=== PATIENT | male | born 1965 | race Two or more races ===

== ENCOUNTER 2024-10-30 16:21 | Emergency (ER) | payer MEDICARE, MEDICAID ==
[2024-10-30 16:41] LABS: Basophils # (auto) 0.1 10 ^3/uL (0-0.2); Eosinophils # (auto) 0.1 10 ^3/uL (0-0.8); Eosinophils % (auto) 1.3 % (0.0-7.0); Hematocrit 32.7 % (41.0-53.0); Hemoglobin 10.8 g/dL (13.5-17.5); Lymphocytes # (auto) 1.3 10 ^3/uL (0.4-5.4); Lymphocytes % (auto) 13.4 % (10.0-50.0); Mean Corpuscular Hemoglobin 33.2 pg (28.0-32.0); Mean Corpuscular Hgb Conc. 33.2 g/dL (32.0-36.0); Mean Corpuscular Volume 99.9 fL (80.0-100.0); Monocytes # (auto) 0.8 10 ^3/uL (0-1.3); Monocytes % (auto) 8.1 % (0.0-12.0); Neutrophils # (auto) 7.4 10 ^3/uL (1.6-8.6); Neutrophils % (auto) 76.2 % (37.0-80.0); Nucleated Red Blood Cells % 0.5 %; Platelet Count (auto) 269 10^3/uL (140-450); Red Blood Cells 3.27 10^6/uL (4.5-5.90); Red Cell Distribution Width 15.2 % (11.8-14.3); White Blood Cell 9.7 10^3/uL (4.4-10.8)
[2024-10-30 16:54] LABS: Potassium 3.8 mmol/L (3.5-5.1); Sodium 139 mmol/L (136-145)
[2024-10-30 16:55] LABS: Anion Gap 13 (5-15); Carbon Dioxide 30 mmol/L (20-31)
[2024-10-30] MEDS: cloNIDine HCL 0.1 MG TAB PO ONE (17:05)
[2024-10-30 17:13] LABS: Calcium 8.5 mg/dL (8.7-10.4); Chloride 96 mmol/L (98-107); Glucose 163 mg/dL (74-106)
[2024-10-30 17:34] LABS: BUN/Creatinine Ratio 4.6 (10.0-20.0); Blood Urea Nitrogen 47 mg/dL (9-23)
--- NOTE | 2024-10-30 18:05 | DVH ---
EXAM: XY CHEST PORTABLE TECHNIQUE: Single frontal chest radiograph CLINICAL HISTORY: HIGH BP DURING DIALYSIS COMPARISON: None Findings/Impression: Frontal chest radiograph demonstrates no acute osseous or superficial soft tissue abnormalities. Tunneled right sided HD catheter terminates in the right atrium. The trachea is midline. The cardiac silhouette and mediastinum are within normal limits. Left basilar atelectasis. No pneumothorax, pleural effusions, or consolidations.
[2024-10-30] MEDS ORDERED: CLON0.2T PO (19:01)
--- NOTE | 2024-10-30 19:01 | ED.PDOC ---
History of Present Illness HPI Comments This patient is a pleasant but morbidly obese 59-year-old male who was brought by EMS today from his dialysis center due to elevated blood pressure concerns. Patient has a history of hypertension and states that it is not always well controlled. Patient was not aware of his blood pressure, but states that it was high at the facility. Patient comes to our facility for management of blood pressure. Patient only received a short dialysis session. Advised patient if he would like us to manage his dialysis tomorrow with an admission if needed, but the patient states it was not want to be admitted to the hospital and will manage his dialysis on his own. Patient's vital signs were stable on arrival. Time Seen by MD: 16:26 Reviewed Notes: Nurses Notes, Or Scrub Tech Notes Information Source: Patient, Emergency Med Personnel Mode of Arrival: EMS Severity: Moderate Timing: Hours Duration: Hours Prehospital treatment: 12 Lead EKG Past Medical History PAST MEDICAL HISTORY: ESRD (On dialysis), HTN Surgical History: Denies all surgeries Family History Family History: Reviewed,noncontributory to illness, No family hx of Cancer, No family hx of DM, No family hx of Heart vanessa, No family hx of HTN, No family hx ofKidney vanessa, No family hx of Liver vanessa, No family hx of Lung vanessa, No family hx of Stroke Social History Smoker: Non-Smoker Alcohol: Denies ETOH Use Drugs: Denies Drug Use Lives In: Home Constitutional: denies: chills, diaphoresis, fatigue, fever, malaise, sweats, weakness, others EENTM: denies: blurred vision, double vision, ear bleeding, ear discharge, ear drainage, ear pain, ear ringing, eye pain, eye redness, hearing loss, mouth pain, mouth swelling, nasal discharge, nose bleeding, nose congestion, nose pain, photophobia, tearing, throat pain, throat swelling, voice changes, others Respiratory: denies: cough, hemoptysis, orthopnea, SOB at rest, shortness of breath, SOB with excertion, stridor, wheezing, others Cardiovascular: denies: chest pain, dizzy spells, diaphoresis, Dyspnea on exertion, edema, irregular heart beat, left arm pain, lightheadedness, palpitations, PND, syncope, others Gastrointestinal: denies: abdomen distended, abdominal pain, blood streaked bowels, constipated, diarrhea, dysphagia, difficulty swallowing, hematemesis, melena, nausea, poor appetite, poor fluid intake, rectal bleeding, rectal pain, vomiting, others Genitourinary: denies: burning, dysuria, flank pain, frequency, hematuria, incontinence, penile discharge, penile sore, pain, testicle pain, testicle swelling, urgency, others Neurological: denies: dizziness, fainting, headache, left sided numbness, left sided weakness, numbness, paresthesia, pre-existing deficit, right sided numbness, right sided weakness, seizure, speech problems, tingling, tremors, weakness, others Musculoskeletal: denies: back pain, gout, joint pain, joint swelling, muscle pain, muscle stiffness, neck pain, others Integumetry: denies: bruises, change in color, change in hair/nails, dryness, laceration, lesions, lumps, rash, wounds, others Allergic/Immunocompromised: denies: Difficulty Healing, Frequent Infections, Hives, Itching, others Hematologic/Lymphatic: denies: anemia, blood clots, easy bleeding, easy bruising, swollen glands, others Endocrine: denies: excessive hunger, excessive sweating, excessive thirst, excessive urination, flushing, intolerance to cold, intolerance to heat, un explained weight gain, unexplained weight loss, others Psychiatric: denies: anxiety, bipolar disorder, depression, hopeless, panic disorder, schizophrenia, sleepless, suicidal, others Physical Exam General Appearance: Mild Distress (Patient was in moderate distress due to anxiety rather than a pain concerns.), Obese HEENT: Normal ENT Inspection, Pharynx Normal, TMs Normal Neck: Full Range of Motion, Non-Tender, Normal, Normal Inspection Respiratory: Chest Non-Tender, Lungs Clear, No Accessory Muscle Use, No Respi ratory Distress, Normal Breath Sounds Cardiovascular: No Edema, No JVD, No Murmur, No Gallop, Normal Peripheral Pulses, Regular Rate/Rhythm Breast Exam: Deferred Gastrointestinal: No Organomegaly, Non Tender, No Pulsatile Mass, Normal Bowel Sounds, Soft Genitalia: Deferred Pelvic: Deferred Rectal: Deferred Extremities: No calf tenderness, Normal capillary refill, Normal inspection, Normal range of motion, Non-tender, No pedal edema Neurologic: Alert, humane agent II-XII nml as Tested, No Motor Deficits, Normal Affect, Normal Mood, No Sensory Deficits Cerebellar Function: Normal Reflexes: Normal Skin: Dry, Normal Color, Warm Lymphatic: No Adenopathy Was a procedure done? Was a procedure done?: No Differential Dx Considerations may include: End-stage renal disease on dialysis, hypertension, pulmonary hypertension X-Ray, Labs, Meds, VS Vital Signs Date Time Temp Pulse Resp B/P (MAP) Pulse Ox O2 Delivery O2 Flow Rate FiO2 10/30/24 17:05 127/71 Lab Test 10/30/24 15:36 Range/Units White Blood Count 9.7 4.4-10.8 10^3/uL Red Blood Count 3.27 L 4.5-5.90 10^6/uL Hemoglobin 10.8 L 13.5-17.5 g/dL Hematocrit 32.7 L 41.0-53.0 % Mean Corpuscular Volume 99.9 80.0-100.0 fL Mean Corpuscular Hemoglobin 33.2 H 28.0-32.0 pg Mean Corpuscular Hemoglobin Concent 33.2 32.0-36.0 g/dL Red Cell Distribution Width 15.2 H 11.8-14.3 % Platelet Count 269 140-450 10^3/uL Mean Platelet Volume 8.9 6.9-10.8 fL Neutrophils (%) (Auto) 76.2 37.0-80.0 % Lymphocytes (%) (Auto) 13.4 10.0-50.0 % Monocytes (%) (Auto) 8.1 0.0-12.0 % Eosinophils (%) (Auto) 1.3 0.0-7.0 % Basophils (%) (Auto) 1.0 0.0-2.0 % Neutrophils # (Auto) 7.4 1.6-8.6 10 ^3/uL Lymphocytes # (Auto) 1.3 0.4-5.4 10 ^3/uL Monocytes # (Auto) 0.8 0-1.3 10 ^3/uL Eosinophils # (Auto) 0.1 0-0.8 10 ^3/uL Basophils # (Auto) 0.1 0-0.2 10 ^3/uL Nucleated Red Blood Cells 0.5 % Sodium Level 139 136-145 mmol/L Potassium Level 3.8 3.5-5.1 mmol/L Chloride Level 96 L 98-107 mmol/L Carbon Dioxide Level 30 20-31 mmol/L Anion Gap 13 5-15 Blood Urea Nitrogen 47 H 9-23 mg/dL Creatinine 10.12 *H 0.700-1.30 mg/dL Glomerular Filtration Rate Calc 5 >90 mL/min BUN/Creatinine Ratio 4.6 L 10.0-20.0 Serum Glucose 163 H 74-106 mg/dL Calcium Level 8.5 L 8.7-10.4 mg/dL Troponin I High Sensitivity 19 </=54 ng/L B-Type Natriuretic Peptide 87.50 0-100 pg/mL Lipase 225 H 12-53 U/L X-Ray, Labs, Meds, VS Comment Patient's blood pressure was 127/71 it did not require intervention while at the facility. Advised patient I will send him home with medication to be used in the event of a hypertensive emergent situation. Advised patient that his creatinine as well as his BUN were highly elevated as was his lipase. Advised that could be indicative of an acute pancreatitis event. Patient states he understands and again repeats that he will manage all other concerns at home. Time of 1ST Reevaluation: 18:58 Reevaluation 1ST: Unchanged Consultation: PCP, Other (Dialysis) Patient Education/Counseling: Diagnosis, Treatment Family Education/Counseling: Diagnosis, Treatment Departure 1 Departure Time of Disposition: 18:59 Impression: Primary Impression: End stage renal disease on dialysis Additional Impressions: Elevated lipase Elevated blood pressure reading Disposition: HOME / SELF CARE / HOMELESS Condition: Stable Additional Instructions: Advised patient follow up with dialysis tomorrow for continued dialysis treatm ents. Additionally, advised patient to follow up with his primary care provider for discussions related to his elevated lipase concerns as well. e-Prescriptions Clonidine Hydrochloride (Clonidine Hcl) 0.2 Mg Tab 1 TAB PO BID, #20 TAB 0 Refills Prov: PETEROLGA Linda PAC 10/30/24 Discharged With: Self, Friend Critical Care Note Critical Care Time?: No Stability Stability form required: No Heart Score Heart Score: Heart Score Response (Comments) Value History N/A 0 EKG Repolarization Disturb 1 Age 45-64 1 Risk Factors 1 or 2 risk factors 1 Troponin Normal limit 0 Total 3 OLGA GREEN PAC Oct 30, 2024 19:01
[2024-10-30 20:53] VITALS: BP 141/74; PULSE 92; RESP 18; TEMP 98.3; O2SAT 96
--- NOTE | 2024-11-05 09:21 | ECG ---
[facility] Test Date: 2024-10-30 Test Time: 14:23:45 Pat Name: TAN DEL RIO Department: ED Room: Gender: M English As A Second Language Teacher: MIREYA : 1965 Requested By: OLGA GREEN Order Number: [id number] Reading MD: Jones Mcleod Measurements Intervals [place] Rate: 92 P: 45 [place]: 192 QRS: 72 QRSD: 93 T: 75 QT: 395 QTc: 489 Interpretive Statements Sinus rhythm RSR' in V1 or V2, probably normal variant Borderline T abnormalities, lateral leads Borderline prolonged QT interval Electronically Signed On 11-06-2024 9:40:45 PST by Jones Mcleod Please click the below link to view image of tracing.
== END 2024-10-30 20:57 | disposition home or self-care (01) ==
LOC: ER 16:21 → EDBD 16:21 → ER 20:57
DX: I12.0 Hypertensive chronic kidney disease with stage 5 chronic kidney disease or end stage renal disease (principal); N18.6 End stage renal disease; R74.8 Abnormal levels of other serum enzymes; Z99.2 Dependence on renal dialysis
CPT/HCPCS: 36415; 71045; 80048; 83690; 83880; 84484; 85025

== ENCOUNTER 2025-09-08 18:58 | Inpatient (IN) | payer MEDICARE, MEDICAID ==
[~2025-09-08] VITALS: Ht 177.8 cm; Wt 120.3 kg
[~2025-09-08 18:58] MED LIST: CLON0.2T PO
[2025-09-08 19:40] LABS: Hematocrit 30.2 % (41.0-53.0); Hemoglobin 10.3 g/dL (13.5-17.5); Mean Corpuscular Hemoglobin 31.0 pg (28.0-32.0); Mean Corpuscular Volume 90.6 fL (80.0-100.0); Nucleated Red Blood Cells % 0.1 %
--- NOTE | 2025-09-08 19:45 | DVH ---
INDICATION: cp TECHNIQUE: Frontal view of the chest. COMPARISON: XY CHEST PORTABLE on DOS: 10/30/24 FINDINGS/IMPRESSION: Suspected left basilar opacity. A component of pleural effusion cannot be excluded. The cardiomediastinal silhouette is prominent, likely accentuated by technique. No pneumothorax. No acute osseous abnormality.
[2025-09-08 19:49] LABS: Potassium 3.7 mmol/L (3.5-5.1); Sodium 138 mmol/L (136-145)
[2025-09-08 19:50] LABS: Anion Gap 17 (5-15); Carbon Dioxide 28 mmol/L (20-31)
[2025-09-08 19:55] LABS: BUN/Creatinine Ratio 3.5 (10.0-20.0)
[2025-09-08 19:59] LABS: Blood Urea Nitrogen 29 mg/dL (9-23); Calcium 7.7 mg/dL (8.7-10.4); Chloride 93 mmol/L (98-107); Glucose 208 mg/dL (74-106)
--- NOTE | 2025-09-08 20:35 | ED.PDOC ---
History of Present Illness HPI Comments 59-year-old male with a history of end-stage renal disease on hemodialysis and hypertension presents to the emergency department with shortness of breath ongoing which started approximately 30 minutes prior to completing his dialysis session today. At this time he reports the pain is 0/10 in severity. Pain was on the right side of his chest associated with some lower back pain, shortness of breath and cough. He feels somewhat lightheaded at this time. REVIEW OF SYSTEMS: General: No fever, no chills, or fatigue HEENT: No sore throat, no earache, no congestion, no neck pain. Cardiac: No chest pain. No palpitations. Lungs: No shortness of breath, no cough. GI: No nausea, no vomiting, no diarrhea, no constipation, no abdominal pain : No dysuria, frequency, or urgency. No hematuria. Musculoskeletal: No joint pain , no joint swelling, no extremity edema. Skin: No rash, no itching. Neuro: No headache, no dizziness, no weakness (And as sated in HPI) PHYSICAL EXAM: General: Awake, alert and oriented. No acute distress. Skin: Skin in warm, dry and intact. Appropriate color for ethnicity. HEENT: The head is normocephalic and atraumatic. Conjunctivae are clear without exudates or hemorrhage. Sclera is non-icteric. Eyelids are normal in appearance without swelling or lesions. Oral mucosa is pink and moist Neck: The neck is supple with normal range of motion. No JVD. Cardiac: Heart rate and rhythm are normal. No murmurs, gallops, or rubs are auscultated. Respiratory: No signs of respiratory distress. Lung sounds are clear in all lobes bilaterally without rales, rhonchi, or wheezes. Abdominal: Abdomen is soft, non-tender without distention, guarding or rigidity. Bowel sounds are present and normoactive in all four quadrants. Extremities: No lower extremity edema Neurological: The patient is awake, alert and oriented to person, place, and time with normal speech. Speech is clear. There is no facial asymmetry. Patient is able to stand from wheelchair and ambulate with some difficulty. Unsteady gait. Psychiatric: Appropriate mood and affect. Good judgement and insight. Chief Complaint: Chest Pain Time Seen by MD: 19:34 Allergies: Coded Allergies: NO KNOWN ALLERGIES (Unverified , 09/08/25) Home Meds Active Scripts Clonidine Hydrochloride (Clonidine Hcl) 0.2 Mg Tab, 1 TAB PO BID, #20 TAB 0 R efills Prov:OLGA GREEN PAC 10/30/24 Mode of Arrival: EMS Past Medical History PAST MEDICAL HISTORY: ESRD, HTN Surgical History: Denies all surgeries Family History Family History: Reviewed,noncontributory to illness, No family hx of Cancer, No family hx of DM, No family hx of Heart vanessa, No family hx of HTN, No family hx ofKidney vanessa, No family hx of Liver vanessa, No family hx of Lung vanessa, No family hx of Stroke Social History Smoker: Non-Smoker Alcohol: Denies ETOH Use Drugs: Denies Drug Use Lives In: Home Was a procedure done? Was a procedure done?: No Differential Dx Considerations may include: Differential diagnoses considered include acute ischemic coronary syndrome, aortic dissection, cardiac tamponade, mediastinitis, pulmonary embolus, pneumothorax, tension pneumothorax, esophageal rupture, coronary artery vasospasm, myocarditis, pericarditis, pneumonia, pulmonary edema, esophageal tear, pancreatitis, aortic stenosis, dilated cardiomyopathy, hypertrophic cardiomyopathy, mitral valve prolapse, malignancy, pleuritis, pneumomediastinum, primary pulmonary hypertension, cholecystitis, esophageal spasm, esophagus, gastritis, GERD, peptic ulcer disease, costochondritis, fibromyalgia, rib fracture, herpes zoster, radicular syndromes, thoracic outlet syndrome, somatization. X-Ray, Labs, Meds, VS Vital Signs Date Time Temp Pulse Resp B/P (MAP) Pulse Ox O2 Delivery O2 Flow Rate FiO2 09/08/25 22:41 83 09/08/25 20:43 Room Air* 0 21 09/08/25 20:40 98.4 91 20 119/78 (92) 100 98.4 09/08/25 20:25 89 09/08/25 19:06 98.6 81 14 100/55 94 98.6 09/08/25 18:59 88 Lab Test 09/08/25 22:20 09/08/25 20:32 09/08/25 19:21 Range/Units Troponin I High Sensitivity 14 14 14 </=54 ng/L White Blood Count 10.2 4.4-10.8 10^3/uL Red Blood Count 3.34 L 4.5-5.90 10^6/uL Hemoglobin 10.3 L 13.5-17.5 g/dL Hematocrit 30.2 L 41.0-53.0 % Mean Corpuscular Volume 90.6 80.0-100.0 fL Mean Corpuscular Hemoglobin 31.0 28.0-32.0 pg Mean Corpuscular Hemoglobin Concent 34.2 32.0-36.0 g/dL Red Cell Distribution Width 13.8 11.8-14.3 % Platelet Count 217 140-450 10^3/uL Mean Platelet Volume 8.7 6.9-10.8 fL Neutrophils (%) (Auto) 71.1 37.0-80.0 % Lymphocytes (%) (Auto) 19.1 10.0-50.0 % Monocytes (%) (Auto) 6.9 0.0-12.0 % Eosinophils (%) (Auto) 1.6 0.0-7.0 % Basophils (%) (Auto) 1.3 0.0-2.0 % Neutrophils # (Auto) 7.3 1.6-8.6 10 ^3/uL Lymphocytes # (Auto) 2.0 0.4-5.4 10 ^3/uL Monocytes # (Auto) 0.7 0-1.3 10 ^3/uL Eosinophils # (Auto) 0.2 0-0.8 10 ^3/uL Basophils # (Auto) 0.1 0-0.2 10 ^3/uL Nucleated Red Blood Cells 0.1 % Sodium Level 138 136-145 mmol/L Potassium Level 3.7 3.5-5.1 mmol/L Chloride Level 93 L 98-107 mmol/L Carbon Dioxide Level 28 20-31 mmol/L Anion Gap 17 H 5-15 Blood Urea Nitrogen 29 H 9-23 mg/dL Creatinine 8.27 H 0.700-1.30 mg/dL Glomerular Filtration Rate Calc 7 >90 mL/min BUN/Creatinine Ratio 3.5 L 10.0-20.0 Serum Glucose 208 H 74-106 mg/dL Calcium Level 7.7 L 8.7-10.4 mg/dL PATIENT: TAN DEL RIO ACCT: [id number] UNIT: [id number] : 1965 LOC: ER ROOM / BED: / AGE / SEX: 59 / M ADM STATUS: REG ER SERVICE [id number] ORDERING PHYSICIAN: ANNA ROWE MD PROCEDURE(s): CXRP - CHEST PORTABLE REASON: cp ORDER NUMBER(s): [id number], ACCESSION NUMBER(s): [id number] INDICATION: cp TECHNIQUE: Frontal view of the chest. COMPARISON: XY CHEST PORTABLE on DOS: 10/30/24 FINDINGS/IMPRESSION: Suspected left basilar opacity. A component of pleural effusion cannot be excluded. The cardiomediastinal silhouette is prominent, likely accentuated by technique. No pneumothorax. No acute osseous abnormality. ATED BY: DELMAR PITT MD DICTATED DATE/TIME: 09/08/251942 SIGNED BY: DELMAR PITT MD Time of 1ST Reevaluation: 20:30 Reevaluation 1ST: Unchanged Patient Education/Counseling: Need For Follow Up Family Education/Counseling: No Family Present SEPSIS Sepsis Screen Date sepsis recognized/suspect: Sep 08, 2025 Time Sepsis recognized/suspect: 1900 Recent Procedure: No On Antibiotic Therapy: No Respiratory Rate >20: No Heart Rate >90: No Temp<36 C (96.8 F) or >38.3 C: No SBP <90 or MAP <65 mmHG: No New Acute Mental Status Change: No Is the patient on CPAP, BIPAP,: No Physician Orders Chest Portable (09/08/25 19:05) Electrocardigram (09/08/25 20:05) Electrocardigram (09/08/25 22:05) Maintenance Manager (09/08/25 ) Vital Signs Q1HR (09/08/25 20:13) Vital Signs Date Time Temp Pulse Resp B/P (MAP) Pulse Ox O2 Delivery O2 Flow Rate FiO2 09/08/25 22:41 83 09/08/25 20:43 Room Air* 0 21 09/08/25 20:40 98.4 91 20 119/78 (92) 100 98.4 09/08/25 20:25 89 09/08/25 19:06 98.6 81 14 100/55 94 98.6 09/08/25 18:59 88 Laboratory Tests Test 09/08/25 19:21 White Blood Count 10.2 10^3/uL (4.4-10.8) Departure 1 Departure Time of Disposition: 00:02 Impression: Primary Impression: Chest pain Additional Impressions: End stage renal disease on dialysis Hypertension Disposition: 09 ADMITTED INPATIENT Condition: Stable Comments MDM: 59-year-old male with multiple risk factors presents with chest pain, Incomplete session of dialysis. Patient is stabilized in the ED Patient admitted to hospitalist service for further treatment, evaluation and monitoring. Extensive evaluation was performed in attempt to identify or rule out: (See differential diagnosis section) The following tests were ordered, and results were reviewed by me and discussed with patient: (See diagnostic results section) The following test were independently interpreted by me: EKG I reviewed and agreed with the following test results read by other providers: Chest x-ray I reviewed the following notes from the pt's past medical encounters: N/A Additional information was gathered from interviewing the following independent historians: EMS personnel Discussion of management or test interpretation with external physician/other qualified health care partner: N/A Addressedone or more chronic illnesses with severe exacerbation, progression, or side effects of treatment: End-stage renal disease, hemodialysis, hypertension an acute or chronic illness that poses a threat to life or bodily function: Chest pain Decision regarding hospitalization or escalation of hospital level of care: Risk and benefits of admission for further treatment of patient's condition was considered. Due to patient's current clinical condition, high risk of decline and poor outcome if discharged and need for further inpatient management and monitoring, patient will be admitted to the hospital. ecision regarding hospitalization or escalation of hospital level of care: Risks and benefits of admission for further treatment of patient's condition was considered however due to patient's stable condition patient will be discharged to follow up closely or return to care for worsening of condition or inability to follow up. Critical Care Note Critical Care Time?: No Stability Stability form required: No Heart Score Heart Score: Heart Score Response (Comments) Value History N/A 0 EKG N/A 0 Age N/A 0 Risk Factors N/A 0 Troponin N/A 0 Total 0 ANNA ROWE MD Sep 08, 2025 20:35
--- NOTE | 2025-09-08 21:53 | ECG ---
[facility] Test Date: 2025-09-08 Test Time: 20:25:21 Pat Name: TAN DEL RIO Department: Room: 0220T Gender: M Ecologist Technician: MARICHUY : 1965 Requested By: ANNA ROWE Order Number: [id number] Reading MD: Jones Mcleod Measurements Intervals [place] Rate: 89 P: 0 [place]: 0 QRS: 71 QRSD: 93 T: 64 QT: 403 QTc: 491 Interpretive Statements Normal sinus rhythm premature atrial contractions RSR' in V1 or V2, probably normal variant Borderline prolonged QT interval Electronically Signed On 09-11-2025 15:42:52 PST by Jones Mcleod Please click the below link to view image of tracing.
[2025-09-09] VITALS (17 sets, daily range): BP systolic 123–141; BP diastolic 68–82; PULSE 77–89; RESP 16–19; TEMP 97.5–98.7; O2SAT 92–100
[2025-09-09] MEDS ORDERED: DEXTROSE (50%) 50ML SYRG IV PRN (00:45)
[2025-09-09] MEDS ORDERED: NITROGLYCERIN 0.4 MG SL TAB SL PRN (00:45)
[2025-09-09] MEDS: ALBUTEROL SULF 2.5 MG/0.5ML(0.5%) NEB SOLN NEB PRN (01:39)
--- NOTE | 2025-09-09 04:25 | DVHHP2 ---
History of Present Illness Reason for Visit: Chest pain History of Present Illness 59-year-old male presents for evaluation of chest pain. Patient reports that today while receiving dialysis he developed substernal chest pain. Associates having shortness for breath. No nausea or vomiting. He also had some dizziness. Past Medical History End-stage renal disease, hypertension, diabetes mellitus Past Surgical History AV fistula Family History Noncontributory Smoke: No ALCOHOL: none Drugs: None Lives: with Family Review of Systems Review of Systems Review of systems are currently negative otherwise addressed in HPI. Allergies: Coded Allergies: NO KNOWN ALLERGIES (Unverified , 09/08/25) Medications Current Medications Medications Dose Ordered Sig/Kike Route Start Time Stop Time Status Last Admin Dose Admin Aspirin 81 mg DAILY PO 09/09/25 10:00 Nifedipine 90 mg DAILY PO 09/09/25 10:00 Atorvastatin Calcium 80 mg HS PO 09/09/25 22:00 Amiodarone HCl 200 mg Q12HR PO 09/09/25 10:00 Metoprolol Tartrate 25 mg BID PO 09/09/25 10:00 Albuterol 2.5 mg Q6HPRN PRN NEB 09/09/25 00:45 09/09/25 01:39 2.5 MG Multivit/Ca Carb/ B Cmplx/FA/Prenat 1 tab DAILY PO 09/09/25 10:00 Furosemide 40 mg BIDD PO 09/09/25 06:00 Diagnostic Test (Pha) 1 strip ACHS 09/09/25 07:00 Insulin Human Regular ACHS SC 09/09/25 07:00 Dextrose 50 ml UD PRN IV 09/09/25 00:45 Ondansetron HCl 4 mg Q4HP PRN IV 09/09/25 00:45 Acetaminophen 650 mg Q6HP PRN PO 09/09/25 00:45 Nitroglycerin 0.4 mg Q5MINP PRN SL 09/09/25 00:45 Morphine Sulfate 2 mg Q30M PRN IV 09/09/25 00:45 Exam Vital Signs Vital Signs Date Time Temp Pulse Resp B/P (MAP) Pulse Ox O2 Delivery O2 Flow Rate FiO2 09/09/25 03:09 98.3 93 12 125/81 (96) 96 98.3 09/09/25 01:39 Room Air* 0 21 Exam Gen: 59-year-old male in mild distress Skin: Warm, dry, normal color and texture, no rash. HEENT: Normocephalic atraumatic, mucous membranes moist and pink. Neck: Cervical and supraclavicular nodes normal without enlargement, trachea is midline, thyroid gland is normal without masses. Pulmonary: Clear to auscultation and percussion bilaterally. Cardiac: Regular rate and rhythm. No murmur Abdomen: Soft, nontender, nondistended, bowel sounds present all 4 quadrants, no guarding, no rigidity, no organomegaly. Extremities: No cyanosis, clubbing, no edema Neuro: Cranial nerves II through XII grossly intact, normal affect and speech, no focal motor deficits. Labs/Xrays ORDERING PHYSICIAN: ANNA ROWE MD PROCEDURE(s): CXRP - CHEST PORTABLE REASON: cp ORDER NUMBER(s): [id number], ACCESSION NUMBER(s): [id number] INDICATION: cp TECHNIQUE: Frontal view of the chest. COMPARISON: XY CHEST PORTABLE on DOS: 10/30/24 FINDINGS/IMPRESSION: Suspected left basilar opacity. A component of pleural e ffusion cannot be excluded. The cardiomediastinal silhouette is prominent, likely accentuated by technique. No pneumothorax. No acute osseous abnormality. Labs Test 09/08/25 22:20 09/08/25 19:21 Range/Units Troponin I High Sensitivity 14 </=54 ng/L White Blood Count 10.2 4.4-10.8 10^3/uL Red Blood Count 3.34 L 4.5-5.90 10^6/uL Hemoglobin 10.3 L 13.5-17.5 g/dL Hematocrit 30.2 L 41.0-53.0 % Mean Corpuscular Volume 90.6 80.0-100.0 fL Mean Corpuscular Hemoglobin 31.0 28.0-32.0 pg Mean Corpuscular Hemoglobin Concent 34.2 32.0-36.0 g/dL Red Cell Distribution Width 13.8 11.8-14.3 % Platelet Count 217 140-450 10^3/uL Mean Platelet Volume 8.7 6.9-10.8 fL Neutrophils (%) (Auto) 71.1 37.0-80.0 % Lymphocytes (%) (Auto) 19.1 10.0-50.0 % Monocytes (%) (Auto) 6.9 0.0-12.0 % Eosinophils (%) (Auto) 1.6 0.0-7.0 % Basophils (%) (Auto) 1.3 0.0-2.0 % Neutrophils # (Auto) 7.3 1.6-8.6 10 ^3/uL Lymphocytes # (Auto) 2.0 0.4-5.4 10 ^3/uL Monocytes # (Auto) 0.7 0-1.3 10 ^3/uL Eosinophils # (Auto) 0.2 0-0.8 10 ^3/uL Basophils # (Auto) 0.1 0-0.2 10 ^3/uL Nucleated Red Blood Cells 0.1 % Sodium Level 138 136-145 mmol/L Potassium Level 3.7 3.5-5.1 mmol/L Chloride Level 93 L 98-107 mmol/L Carbon Dioxide Level 28 20-31 mmol/L Anion Gap 17 H 5-15 Blood Urea Nitrogen 29 H 9-23 mg/dL Creatinine 8.27 H 0.700-1.30 mg/dL Glomerular Filtration Rate Calc 7 >90 mL/min BUN/Creatinine Ratio 3.5 L 10.0-20.0 Serum Glucose 208 H 74-106 mg/dL Calcium Level 7.7 L 8.7-10.4 mg/dL SEPSIS Sepsis Screen Date sepsis recognized/suspect: Sep 08, 2025 Time Sepsis recognized/suspect: 1900 Recent Procedure: No On Antibiotic Therapy: No Respiratory Rate >20: No Heart Rate >90: No Temp<36 C (96.8 F) or >38.3 C: No SBP <90 or MAP <65 mmHG: No New Acute Mental Status Change: No Is the patient on CPAP, BIPAP,: No Physician Orders Aspirin Tablet (09/09/25 10:00) Nifedipine Er (Procardia Xl (Time-Releas (09/09/25 10:00) Atorvastatin (Lipitor) (09/09/25 22:00) Amiodarone Tablet (Cordarone Tablet) (09/09/25 10:00) Metoprolol Tartrate Tablet (Lopressor Ta (09/09/25 10:00) Albuterol Medneb (Ventolin Medneb) (09/09/25 00:45) B-Complex W/ C & Folic Tablet (Nephro-Vi (09/09/25 10:00) Consistent Carb(Ccho)Diabetes (09/09/25 Breakfast) Furosemide Tablet (Lasix Tablet) (09/09/25 06:00) Basic Metabolic Panel (09/10/25 04:00) Glucose Blood (Accu-Chek Comfort Curve T (09/09/25 07:00) Insulin R (Human) (Insulin R) (09/09/25 07:00) Dextrose 50% Syringe (09/09/25 00:45) Admit (09/09/25 00:41) Ondansetron Hcl (Zofran) (09/09/25 00:45) Echo 2d Mode Cardiac Dop (09/09/25 00:41) Condition: Fair (09/09/25 00:41) Acetaminophen Tablet (Tylenol Tablet) (09/09/25 00:45) Bedrest With Bathroom Privileg (09/09/25 00:41) Nitroglycerin Sublingual (Ntrostat Subli (09/09/25 00:45) Morphine Sulfate Injection (09/09/25 00:45) Stat Ekg For Chest Pain (09/09/25 00:41) Notify Md Of Changes From Base (09/09/25 00:41) Athletic Instructor For 24 Hours (09/09/25 00:41) Emergency Dysrhythmia Protocol (09/09/25 00:41) Rhythm Strips Once Every Shift (09/09/25 00:41) Oxygen By Nasal Cannula (09/09/25 00:41) Vital Signs Date Time Temp Pulse Resp B/P (MAP) Pulse Ox O2 Delivery O2 Flow Rate FiO2 09/09/25 03:09 98.3 93 12 125/81 (96) 96 98.3 09/09/25 02:09 89 09/09/25 02:04 97.5 83 16 127/82 97 97.5 09/09/25 01:45 83 16 98 09/09/25 01:39 98 Room Air* 0 21 09/09/25 01:39 98 Room Air 0.0 09/09/25 01:39 89 16 98 09/09/25 00:47 97.5 93 14 127/82 (97) 93 97.5 09/08/25 22:41 83 09/08/25 20:43 Room Air* 0 21 09/08/25 20:40 98.4 91 20 119/78 (92) 100 98.4 09/08/25 20:25 89 Laboratory Tests Test 09/08/25 19:21 White Blood Count 10.2 10^3/uL (4.4-10.8) Medications Medications Dose Ordered Sig/Kike Route Start Time Stop Time Status Last Admin Dose Admin Albuterol 2.5 mg Q6HPRN PRN NEB 09/09/25 00:45 09/09/25 01:39 2.5 MG Assessment/Plan Assessment/Plan Assessment Chest pain rule out ACS End-stage renal disease, dialysis dependent Hypertension Diabetes mellitus Plan Admit the patient to telemetry to the hospitalist Cardiology consultation Resume home medications Continue treatment per orders. Plan discussed with: Patient My Orders Orders - FLORIN MCDOWELL Procedure Category Date Status Time Aspirin Tablet PHA 09/09/25 In Process 10:00 Nifedipine Er PHA 09/09/25 In Process (Procardia Xl 10:00 Atorvastatin (Lipitor) PHA 09/09/25 In Process 22:00 Amiodarone Tablet PHA 09/09/25 In Process (Cordarone Tablet) 10:00 Metoprolol Tartrate PHA 09/09/25 In Process Tablet (Lopressor Ta 10:00 Albuterol Medneb PHA 09/09/25 In Process (Ventolin Medneb) 00:45 B-Complex W/ C & PHA 09/09/25 In Process Folic Tablet 10:00 Consistent DIET 09/09/25 Transmitted Carb(Ccho)Diabetes Breakfast Furosemide Tablet PHA 09/09/25 In Process (Lasix Tablet) 06:00 Basic Metabolic Panel LAB 09/10/25 Verified 04:00 Glucose Blood PHA 09/09/25 In Process (Accu-Chek Comfort 07:00 Insulin R (Human) PHA 09/09/25 In Process (Insulin R) 07:00 Dextrose 50% Syringe PHA 09/09/25 In Process 00:45 Admit ADMIT 09/09/25 Transmitted 00:41 Ondansetron Hcl PHA 09/09/25 In Process (Zofran) 00:45 Echo 2d Mode Cardiac US 09/09/25 Logged DOP 00:41 Condition: Fair GREGORY 09/09/25 In Process 00:41 Acetaminophen Tablet PHA 09/09/25 In Process (Tylenol Tablet) 00:45 Bedrest With Bathroom [facility] 09/09/25 In Process Privileg 00:41 Nitroglycerin [facility] 09/09/25 In Process Sublingual (Ntrostat 00:45 Morphine Sulfate [facility] 09/09/25 In Process Injection 00:45 Stat Ekg For Chest [facility] 09/09/25 In Process Pain 00:41 Notify Md Of Changes [facility] 09/09/25 In Process From Base 00:41 Athletic Instructor For [facility] 09/09/25 In Process 24 Hours 00:41 Emergency Dysrhythmia [facility] 09/09/25 In Process Protocol 00:41 Rhythm Strips Once [facility] 09/09/25 In Process Every Shift 00:41 Oxygen By Nasal RT 09/09/25 Transmitted Cannula 00:41 Date of Service: Sep 09, 2025 Billing Provider: FLORIN MCDOWELL Common Visit Codes: [id number] INP/OBS CARE (HIGH) FLORIN MCDOWELL Sep 09, 2025 04:25
[2025-09-09] MEDS: MORPHINE SULFATE INJ 2 MG/ml SYRG IV PRN (04:36)
[2025-09-09] MEDS: MORPHINE SULFATE 4 MG/ML SYR/VIAL ONE ×2 (04:36→08:48)
[2025-09-09] MEDS: ONDANSETRON HCL 4 MG/2 ML VIAL IV PRN (04:37)
[2025-09-09] MEDS: FUROSEMIDE 40 MG TAB PO SCH (06:00)
[2025-09-09] MEDS: ACCU-CHEK COMFORT CURVE STRIP VI SCH (06:34)
[2025-09-09] MEDS: InsuLIN REG 1unit/0.01ml Soln (100units/ml) SC SCH (06:34)
[2025-09-09] MEDS ORDERED: IPRATROPIUM BROM 0.5 MG/2.5ML INH SOL NEB SCH (10:00)
[2025-09-09] MEDS ORDERED: ALBUTEROL SULF 2.5 MG/0.5ML(0.5%) NEB SOLN NEB SCH (10:00)
--- NOTE | 2025-09-09 10:03 | ECG ---
[facility] Test Date: 2025-09-08 Test Time: 22:41:48 Pat Name: TAN DEL RIO Department: Room: 0220T Gender: M Assistant City Attorney: MARICHUY : 1965 Requested By: ANNA ROEW Order Number: [id number] Reading MD: Jones Mcleod Measurements Intervals [place] Rate: 83 P: 61 VA: 215 QRS: 75 QRSD: 95 T: 75 QT: 442 QTc: 520 Interpretive Statements Sinus rhythm Atrial premature complex Prolonged VA interval RSR' in V1 or V2, probably normal variant Prolonged QT interval Electronically Signed On 09-11-2025 15:43:02 PST by Jones Mcleod Please click the below link to view image of tracing.
--- NOTE | 2025-09-09 10:18 | ECG ---
[facility] Test Date: 2025-09-09 Test Time: 02:09:21 Pat Name: TAN DEL RIO Department: Room: 0220T Gender: M [employer] Operator: MARICHUY : 1965 Requested By: ANNA ROWE Order Number: [id number] Reading MD: Jones Mcleod Measurements Intervals [place] Rate: 89 P: 0 NC: 0 QRS: 73 QRSD: 133 T: 62 QT: 419 QTc: 510 Interpretive Statements Normal sinus rhythm Nonspecific intraventricular conduction delay Electronically Signed On 09-11-2025 15:43:42 PST by Jones Mcleod Please click the below link to view image of tracing.
[2025-09-09] MEDS: B-COMPLEX W/ C & FOLIC ACID(NEPHROVITE TAB) PO SCH (11:03)
[2025-09-09] MEDS: AMIODARONE HCL 200 MG TAB PO SCH (11:03)
[2025-09-09] MEDS: ACETAMINOPHEN 325 MG TAB PO PRN (11:16)
[2025-09-09] MEDS: METOPROLOL TARTRATE 25 MG TAB PO SCH (11:53)
[2025-09-09 11:54] LABS: INR 1.04 (0.9-1.15); Partial Thromboplastin Time 31.9 SEC (24.5-34.5); Prothrombin Time 11.0 sec (9.3-11.8)
[2025-09-09 11:55] LABS: Alanine Aminotransferase 22 U/L (7-40); Alkaline Phosphatase 115 U/L (46-116); Anion Gap 17 (5-15); BUN/Creatinine Ratio 3.7 (10.0-20.0); Carbon Dioxide 29 mmol/L (20-31); Magnesium 2.1 mg/dL (1.6-2.6); Potassium 4.4 mmol/L (3.5-5.1); Sodium 140 mmol/L (136-145)
[2025-09-09 11:57] LABS: Bilirubin, Total 0.2 mg/dL (0.2-1.0)
[2025-09-09 12:00] LABS: Blood Urea Nitrogen 38 mg/dL (9-23); Chloride 94 mmol/L (98-107); Glucose 128 mg/dL (74-106)
[2025-09-09 12:01] LABS: Albumin 4.9 g/dL (3.2-4.8); Calcium 7.8 mg/dL (8.7-10.4); Total Protein 8.7 g/dL (5.7-8.2)
[2025-09-09] MEDS: IPRATROPIUM BROM 0.5 MG/2.5ML INH SOL NEB SCH (12:24)
[2025-09-09] MEDS: ALBUTEROL SULF 2.5 MG/0.5ML(0.5%) NEB SOLN NEB SCH (12:24)
--- NOTE | 2025-09-09 13:30 | DVHPN2 ---
Reviewed: Care Plan, H&P, Labs, Medications, Previous Orders, Radiology Changes from previous H/P or p: No Changes Objective Vitals Vital Signs Date Time Temp Pulse Resp B/P (MAP) Pulse Ox O2 Delivery O2 Flow Rate FiO2 09/09/25 12:55 83 142/86 09/09/25 12:30 18 100 09/09/25 12:24 Nasal Cannula* 3 32 09/09/25 03:09 98.3 98.3 Medications Current Medications Medications Dose Ordered Sig/Kike Route Start Time Stop Time Status Last Admin Dose Admin Aspirin 81 mg DAILY PO 09/09/25 10:00 09/09/25 11:04 81 MG Nifedipine 90 mg DAILY PO 09/09/25 10:00 09/09/25 11:04 90 MG Atorvastatin Calcium 80 mg HS PO 09/09/25 22:00 Amiodarone HCl 200 mg Q12HR PO 09/09/25 10:00 09/09/25 11:03 200 MG Metoprolol Tartrate 25 mg BID PO 09/09/25 10:00 09/09/25 11:53 25 MG Multivit/Ca Carb/ B Cmplx/FA/Prenat 1 tab DAILY PO 09/09/25 10:00 09/09/25 11:03 1 TAB Furosemide 40 mg BIDD PO 09/09/25 06:00 Diagnostic Test (Pha) 1 strip ACHS 09/09/25 07:00 09/09/25 11:59 1 STRIP Insulin Human Regular ACHS SC 09/09/25 07:00 09/09/25 06:34 4 UNITS Dextrose 50 ml UD PRN IV 09/09/25 00:45 Ondansetron HCl 4 mg Q4HP PRN IV 09/09/25 00:45 09/09/25 08:50 4 MG Acetaminophen 650 mg Q6HP PRN PO 09/09/25 00:45 09/09/25 11:16 650 MG Nitroglycerin 0.4 mg Q5MINP PRN SL 09/09/25 00:45 Morphine Sulfate 2 mg Q30M PRN IV 09/09/25 00:45 09/09/25 08:49 2 MG Albuterol 2.5 mg Q6HR NEB 09/09/25 12:00 09/09/25 12:24 2.5 MG Ipratropium [place] 0.5 mg Q6HR NEB 09/09/25 12:00 09/09/25 12:24 0.5 MG Laboratory Results Laboratory Tests 09/08/25 19:21 09/09/25 11:15 Chemistry Test 09/08/25 19:21 09/09/25 11:15 Calcium Level 7.7 mg/dL (8.7-10.4) L 7.8 mg/dL (8.7-10.4) L Albumin 4.9 g/dL (3.2-4.8) H Magnesium Level 2.1 mg/dL (1.6-2.6) Total Protein 8.7 g/dL (5.7-8.2) H Coagulation Test 09/09/25 11:15 Prothrombin Time 11.0 sec (9.3-11.8) Prothrombin Time INR 1.04 (0.9-1.15) Activated Partial Thromboplast Time 31.9 SEC (24.5-34.5) Cardiac Markers Test 09/09/25 11:15 B-Type Natriuretic Peptide 88.08 pg/mL (0-100) LFT Test 09/09/25 11:15 Alanine Aminotransferase (ALT) 22 U/L (7-40) Alkaline Phosphatase 115 U/L (46-116) Aspartate Amino Transferase (AST) 16 U/L (13-40) Total Bilirubin 0.2 mg/dL (0.2-1.0) HgA1c, TSH Test 09/09/25 11:15 Hemoglobin A1c 11.0 % A1C (<5.7) H Thyroid Stimulating Hormone (TSH) 2.59 uIU/mL (0.55-4.78) Labs and/or images reviewed: Labs reviewed by me, Image(s) reviewed by me Assessment/Plan Assessment/Plan Chest pain rule out ACS : Treatment per ACS protocol, consult for Dr. Kellie Ye End-stage renal disease, dialysis dependent nephrology consult Hypertension Diabetes mellitus Moderate malnutrition Time spent 50 minutes Patient is full code Advanced care planning time 20 minutes Plan discussed with: Patient Date of Service: Sep 09, 2025 Billing Provider: JANICE MUNOZ MD Common Visit Codes: [id number] INP/OBS CARE(HIGH) Secondary Visit Codes: [id number] CARE PLAN 30 MINUTES JANICE MUNOZ MD Sep 09, 2025 13:30
[2025-09-09] MEDS: HYDROcodone-ACET 10/325MG TAB PO PRN (15:56)
[2025-09-09] MEDS ORDERED: FERR1TAB17 PO (17:19)
[2025-09-09] MEDS ORDERED: PREG50CA PO (17:45)
[2025-09-09] MEDS ORDERED: NIFE90TA75 PO (17:45)
[2025-09-09] MEDS ORDERED: MIDO5TAB4 PO (17:45)
[2025-09-09] MEDS ORDERED: PANT1INJ3 PO (17:45)
[2025-09-09] MEDS ORDERED: METH-1181 PO (17:45)
[2025-09-09] MEDS ORDERED: ATOR-47 PO (17:45)
[2025-09-09] MEDS ORDERED: B-CO-5 OR (17:55)
[2025-09-09] MEDS ORDERED: METO10TA3 PO (17:55)
[2025-09-09] MEDS ORDERED: AMLO1TAB22 PO (17:59)
[2025-09-09] MEDS ORDERED: METO-158 PO (18:00)
[2025-09-09] MEDS ORDERED: INSLANTI SC (18:02)
[2025-09-09] MEDS ORDERED: INSU100I4 SC (18:02)
--- NOTE | 2025-09-09 21:04 | DVHINCON2 ---
Date of service: Sep 09, 2025 Referring Physician Jose Elias Reason for Consultation Chest pain History of Present Illness This is a 59-year-old male with a past medical history of end-stage renal disease on hemodialysis and hypertension presents to the emergency department with a complaint of shortness of breath ongoing which started approximately 30 minutes prior to completing his dialysis session on date of admission. Pain was on the right side of his chest associated with some lower back pain, shortness of breath and cough. He feels somewhat lightheaded at this time. EKG showed A Flutter at 89.Chest x-ray shows suspected left basilar opacity. Troponin is negative x3. Patient was admitted to the hospital. I am asked to consult on this patient. Family History: Diabetes mellitus FATHER FH: breast cancer MOTHER Hypertension MOTHER Allergies: Coded Allergies: NO KNOWN ALLERGIES (Unverified , 09/08/25) Home Meds Active Scripts Clonidine Hydrochloride (Clonidine Hcl) 0.2 Mg Tab, 1 TAB PO BID, #20 TAB 0 Refills Prov:OLGA GREEN PAC 10/30/24 Reported Medications Insulin Lispro (Humalog Kwikpen) 100 Unit/Ml Inj, 100 UNIT SC, INJ 09/09/25 Insulin Glargine (Lantus) 100 Unit/Ml Inj, 10 UNIT SC DAILY, INJ 09/09/25 Metoprolol Tartrate (Metoprolol Tartrate) 50 Mg Tab, 50 MG PO BID for 30 Days, MG 09/09/25 Amlodipine Besylate (Amlodipine Besylate) 5 Mg Tab, 20 MG PO DAILY for 30 Days, MG 09/09/25 Metoclopramide Hcl (Metoclopramide Hcl) 10 Mg Tab, 10 MG PO Q6HPRN PRN for nausea and vomiting for 30 Days, MG 09/09/25 B-Complex W/ C & Folic Acid (Dana-Sonny) Tab, 1 MG OR DAILY, TAB 09/09/25 Pantoprazole Sodium (PANTOPRAZOLE SODIUM) 40 Mg Inj, 40 MG PO DAILY, INJ 09/09/25 Nifedipine (Nifedipine Er) 90 Mg Tab, 1 TAB PO DAILY@BREAKFAST, #30 TAB 5 Refills 09/09/25 Atorvastatin Calcium (ATORVASTATIN CALCIUM) 80 Mg Tab, 1 TAB PO DAILY, #30 TAB 5 Refills 09/09/25 Midodrine Hcl (Midodrine Hcl) 5 Mg Tab, 5 MG PO BID, TAB 09/09/25 Pregabalin (Lyrica) 50 Mg Cap, 1 CAP PO BID, #90 CAP 09/09/25 Methocarbamol (Methocarbamol) 500 Mg Tab, 500 MG PO BID, TAB 09/09/25 Ferric Citrate (Auryxia) 210 Mg Tab, 210 MG PO BID, TAB 09/09/25 Current Medications Current Medications Medications (Trade) Dose Ordered Sig/Kike Route PRN Reason Start Time Stop Time Status Last Admin Aspirin 81 mg DAILY PO 09/09/25 10:00 09/09/25 11:04 Nifedipine (Procardia Xl (Time-Release)) 90 mg DAILY PO 09/09/25 10:00 09/09/25 11:04 Atorvastatin Calcium (Lipitor) 80 mg HS PO 09/09/25 22:00 Amiodarone HCl (Cordarone Tablet) 200 mg Q12HR PO 09/09/25 10:00 09/09/25 11:03 Metoprolol Tartrate (Lopressor Tablet) 25 mg BID PO 09/09/25 10:00 09/09/25 11:53 Albuterol (Ventolin Medneb) 2.5 mg Q6HPRN PRN NEB SHORTNESS OF BREATH 09/09/25 00:45 09/09/25 10:01 DC 09/09/25 01:39 Multivit/Ca Carb/ B Cmplx/FA/Prenat (Nephro-Sonny Tablet) 1 tab DAILY PO 09/09/25 10:00 09/09/25 11:03 Furosemide (Lasix Tablet) 40 mg BIDD PO 09/09/25 06:00 Diagnostic Test (Pha) (Accu-Chek Comfort Curve T) 1 strip ACHS 09/09/25 07:00 09/09/25 11:59 Insulin Human Regular (InsuLIN R) ACHS SC 09/09/25 07:00 09/09/25 06:34 Dextrose 50 ml UD PRN IV Blood Sugar LESS THAN 60 09/09/25 00:45 Ondansetron HCl (Zofran) 4 mg Q4HP PRN IV NAUSEA / VOMITING 09/09/25 00:45 09/09/25 08:50 Acetaminophen (Tylenol Tablet) 650 mg Q6HP PRN PO PAIN SCALE 1-3 OR TEMP>100.4 09/09/25 00:45 09/09/25 11:16 Nitroglycerin (Ntrostat Sublingual) 0.4 mg Q5MINP PRN SL FOR CHEST PAIN 09/09/25 00:45 Morphine Sulfate 2 mg Q30M PRN IV FOR CHEST PAIN 09/09/25 00:45 09/09/25 08:49 Albuterol (Ventolin Medneb) 2.5 mg Q6HR [facility] 09/09/25 10:00 09/09/25 10:08 DC Ipratropium [place] (Atrovent Medneb) 0.5 mg Q6HR [facility] 09/09/25 10:00 09/09/25 10:08 DC Albuterol (Ventolin Medneb) 2.5 mg Q6HR [facility] 09/09/25 12:00 09/09/25 12:24 Ipratropium [place] (Atrovent Medneb) 0.5 mg Q6HR [facility] 09/09/25 12:00 09/09/25 12:24 Acetaminophen/ Hydrocodone Bitart ([place] 10/325MG Tab) 1 tab Q6HP PRN PO MODERATE PAIN (4-6 PAIN SCALE) 09/09/25 15:45 09/09/25 15:56 Review of Systems General: No fever, no chills, or fatigue HEENT: No sore throat, no earache, no congestion, no neck pain. Cardiac: No chest pain. No palpitations. Lungs: No shortness of breath, no cough. GI: No nausea, no vomiting, no diarrhea, no constipation, no abdominal pain : No dysuria, frequency, or urgency. No hematuria. Musculoskeletal: No joint pain , no joint swelling, no extremity edema. Skin: No rash, no itching. Neuro: No headache, no dizziness, no weakness (And as sated in HPI) Vital Signs Vital Signs Date Time Temp Pulse Resp B/P (MAP) Pulse Ox O2 Delivery O2 Flow Rate FiO2 09/09/25 17:00 97.7 80 19 127/69 (88) 97 97.7 09/09/25 14:30 Nasal Cannula* 3 32 Physical Exam GENERAL: Alert and oriented x 3. No acute distress. EYES: PERRL, EOMI. Anicteric. HENT: Moist mucous membranes. LUNGS: Clear to auscultation bilaterally. CARDIOVASCULAR: Regular rate and rhythm. ABDOMEN: Soft, nontender and nondistended. EXTREMITIES: No edema. NEUROLOGIC: No focal neurological deficits. SKIN: Warm, dry. Labs/Diagnostic Data Labs Test 09/09/25 16:44 09/09/25 11:15 09/08/25 22:20 09/08/25 19:21 Range/Units POC Glucose 129 H 70-106 mg/dl Prothrombin Time 11.0 9.3-11.8 sec Prothrombin Time INR 1.04 0.9-1.15 Activated Partial Thromboplast Time 31.9 24.5-34.5 SEC Sodium Level 140 136-145 mmol/L Potassium Level 4.4 3.5-5.1 mmol/L Chloride Level 94 L 98-107 mmol/L Carbon Dioxide Level 29 20-31 mmol/L Anion Gap 17 H 5-15 Blood Urea Nitrogen 38 H 9-23 mg/dL Creatinine 10.36 #*H 0.700-1.30 mg/dL Glomerular Filtration Rate Calc 5 >90 mL/min BUN/Creatinine Ratio 3.7 L 10.0-20.0 Serum Glucose 128 H 74-106 mg/dL Hemoglobin A1c 11.0 H <5.7 % A1C Lactic Acid Level 1.4 0.4-2.0 mmol/L Calcium Level 7.8 L 8.7-10.4 mg/dL Magnesium Level 2.1 1.6-2.6 mg/dL Total Bilirubin 0.2 0.2-1.0 mg/dL Aspartate Amino Transferase (AST) 16 13-40 U/L Alanine Aminotransferase (ALT) 22 7-40 U/L Alkaline Phosphatase 115 46-116 U/L C-Reactive Protein High Sensitivity 2.11 H <1.0 mg/dL B-Type Natriuretic Peptide 88.08 0-100 pg/mL Total Protein 8.7 H 5.7-8.2 g/dL Albumin 4.9 H 3.2-4.8 g/dL Thyroid Stimulating Hormone (TSH) 2.59 0.55-4.78 uIU/mL Troponin I High Sensitivity 14 </=54 ng/L White Blood Count 10.2 4.4-10.8 10^3/uL Red Blood Count 3.34 L 4.5-5.90 10^6/uL Hemoglobin 10.3 L 13.5-17.5 g/dL Hematocrit 30.2 L 41.0-53.0 % Mean Corpuscular Volume 90.6 80.0-100.0 fL Mean Corpuscular Hemoglobin 31.0 28.0-32.0 pg Mean Corpuscular Hemoglobin Concent 34.2 32.0-36.0 g/dL Red Cell Distribution Width 13.8 11.8-14.3 % Platelet Count 217 140-450 10^3/uL Mean Platelet Volume 8.7 6.9-10.8 fL Neutrophils (%) (Auto) 71.1 37.0-80.0 % Lymphocytes (%) (Auto) 19.1 10.0-50.0 % Monocytes (%) (Auto) 6.9 0.0-12.0 % Eosinophils (%) (Auto) 1.6 0.0-7.0 % Basophils (%) (Auto) 1.3 0.0-2.0 % Neutrophils # (Auto) 7.3 1.6-8.6 10 ^3/uL Lymphocytes # (Auto) 2.0 0.4-5.4 10 ^3/uL Monocytes # (Auto) 0.7 0-1.3 10 ^3/uL Eosinophils # (Auto) 0.2 0-0.8 10 ^3/uL Basophils # (Auto) 0.1 0-0.2 10 ^3/uL Nucleated Red Blood Cells 0.1 % Assessment Chest pain. End-stage renal disease. Hypertension. Diabetes mellitus. Moderate malnutrition. Plan/Recommendation I agree with your ongoing assessment and care of plan. Echocardiogram. Morphine and [place] for pain management. Amiodarone. Aspirin, Lipitor, Metoprolol. Nifedipine. Nitro SL. Additional plan as per the hospital course. A total of 45 minutes was spent reviewing the patient record, examining the patient, making a diagnostic and therapeutic plan, discussing this plan with medical personnel, following up on diagnostic studies and following the patient for clinical stability excluding any and all procedures. At least 50% of this time was spent in direct, [id number] contact. Plan discussed with: Patient DEZ TORREZ MD Sep 09, 2025 18:18
--- NOTE | 2025-09-09 22:05 | DVH ---
CLINICAL HISTORY: syncope TECHNIQUE: Helical scanning was performed of the head from the skull base to the vertex. Multiplanar reconstructions were performed. This exam was performed according to our departmental dose optimization program. Up-to-date CT equipment and radiation dose reduction techniques are utilized as appropriate. CTDI 68 DLP 1336 COMPARISON: None FINDINGS: There is no evidence for acute intracranial hemorrhage, acute ischemic changes, mass, mass effect, or extra-axial fluid collection. There is no hydrocephalus or midline shift. There is no effacement of the cerebral sulci and basal subarachnoid cisterns. The clark-white matter differentiation is well maintained. Scattered white matter hypoattenuation is most compatible with a mild burden of nonspecific chronic small vessel ischemic change. 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 There is mild left lateral scalp soft tissue swelling / hematoma formation. No underlying skull fracture seen. The imaged paranasal sinuses are clear. IMPRESSION: NO ACUTE INTRACRANIAL ABNORMALITY SEEN.
[2025-09-09] MEDS: ATORVASTATIN 20 MG TAB PO SCH (23:08)
[2025-09-10] VITALS (10 sets, daily range): BP systolic 97–124; BP diastolic 60–73; PULSE 79–115; RESP 17–18; TEMP 36.3; O2SAT 91–100
[2025-09-10 06:44] LABS: Anion Gap 21 (5-15); Carbon Dioxide 26 mmol/L (20-31); Potassium 4.5 mmol/L (3.5-5.1); Sodium 141 mmol/L (136-145)
[2025-09-10 06:50] LABS: BUN/Creatinine Ratio 4.0 (10.0-20.0)
[2025-09-10 07:00] LABS: Blood Urea Nitrogen 45 mg/dL (9-23); Calcium 7.6 mg/dL (8.7-10.4); Chloride 94 mmol/L (98-107); Glucose 124 mg/dL (74-106)
[2025-09-10] MEDS ORDERED: VADA150T PO (07:34)
[2025-09-10] MEDS ORDERED: LIDOCAINE 1% HCL (LOCAL ANESTH.) INJ 20ML MDV ID ONE (08:00)
[2025-09-10] MEDS ORDERED: HEPARIN 1,000 UNITS/ml 1ML VIAL IV ONE (08:00)
--- NOTE | 2025-09-10 09:45 | DVHPN2 ---
Reviewed: Care Plan, H&P, Labs, Medications, Previous Orders, Radiology Changes from previous H/P or p: No Changes Objective Vitals Vital Signs Date Time Temp Pulse Resp B/P (MAP) Pulse Ox O2 Delivery O2 Flow Rate FiO2 09/10/25 08:37 97.4 79 18 97/71 (80) 96 97.4 09/10/25 08:08 Nasal Cannula* 3 32 Intake/Output Intake and Output 09/10/25 07:00 Intake Total 220 ml Output Total 0 ml Balance 220 ml Intake Oral 220 ml Output Urine Total 0 ml Medications Current Medications Medications Dose Ordered Sig/Kike Route Start Time Stop Time Status Last Admin Dose Admin Aspirin 81 mg DAILY PO 09/09/25 10:00 09/09/25 11:04 81 MG Nifedipine 90 mg DAILY PO 09/09/25 10:00 09/09/25 11:04 90 MG Atorvastatin Calcium 80 mg HS PO 09/09/25 22:00 09/09/25 23:08 80 MG Amiodarone HCl 200 mg Q12HR PO 09/09/25 10:00 09/09/25 23:09 200 MG Metoprolol Tartrate 25 mg BID PO 09/09/25 10:00 09/09/25 23:08 25 MG Multivit/Ca Carb/ B Cmplx/FA/Prenat 1 tab DAILY PO 09/09/25 10:00 09/09/25 11:03 1 TAB Furosemide 40 mg BIDD PO 09/09/25 06:00 09/10/25 06:27 40 MG Diagnostic Test (Pha) 1 strip ACHS 09/09/25 07:00 09/10/25 06:25 1 STRIP Insulin Human Regular ACHS SC 09/09/25 07:00 09/10/25 06:39 2 UNITS Dextrose 50 ml UD PRN IV 09/09/25 00:45 Ondansetron HCl 4 mg Q4HP PRN IV 09/09/25 00:45 09/09/25 08:50 4 MG Acetaminophen 650 mg Q6HP PRN PO 09/09/25 00:45 09/09/25 20:38 650 MG Nitroglycerin 0.4 mg Q5MINP PRN SL 09/09/25 00:45 Morphine Sulfate 2 mg Q30M PRN IV 09/09/25 00:45 09/09/25 08:49 2 MG Albuterol 2.5 mg Q6HR NEB 09/09/25 12:00 09/10/25 08:03 2.5 MG Ipratropium [place] 0.5 mg Q6HR NEB 09/09/25 12:00 09/10/25 08:03 0.5 MG Acetaminophen/ Hydrocodone Bitart 1 tab Q6HP PRN PO 09/09/25 15:45 09/09/25 15:56 1 TAB Laboratory Results Laboratory Tests 09/08/25 19:21 09/10/25 05:09 Chemistry Test 09/09/25 11:15 09/10/25 05:09 Albumin 4.9 g/dL (3.2-4.8) H Calcium Level 7.8 mg/dL (8.7-10.4) L 7.6 mg/dL (8.7-10.4) L Magnesium Level 2.1 mg/dL (1.6-2.6) Total Protein 8.7 g/dL (5.7-8.2) H Coagulation Test 09/09/25 11:15 Prothrombin Time 11.0 sec (9.3-11.8) Prothrombin Time INR 1.04 (0.9-1.15) Activated Partial Thromboplast Time 31.9 SEC (24.5-34.5) Cardiac Markers Test 09/09/25 11:15 B-Type Natriuretic Peptide 88.08 pg/mL (0-100) LFT Test 09/09/25 11:15 Alanine Aminotransferase (ALT) 22 U/L (7-40) Alkaline Phosphatase 115 U/L (46-116) Aspartate Amino Transferase (AST) 16 U/L (13-40) Total Bilirubin 0.2 mg/dL (0.2-1.0) HgA1c, TSH Test 09/09/25 11:15 Hemoglobin A1c 11.0 % A1C (<5.7) H Thyroid Stimulating Hormone (TSH) 2.59 uIU/mL (0.55-4.78) Labs and/or images reviewed: Labs reviewed by me, Image(s) reviewed by me Assessment/Plan Assessment/Plan Chest pain coronary artery disease ruled out, consult for Dr. Kellie Ye appreciated End-stage renal disease, dialysis dependent nephrology consult by Dr. Frandy Ye appreciated, patient getting hemodialysis today, Dr. Frandy Ye spoke to me and advised the patient can be discharged today. He also told that the patient is noncompliant and keep going to different hospitals in the area Hypertension Diabetes mellitus Moderate malnutrition Time spent 50 minutes Patient is full code Advanced care planning time 20 minutes Plan discussed with: Patient My Orders Orders - JANICE MUNOZ MD Procedure Category Date Status Time * Cardiology Consult CONS 09/09/25 Transmitted 13:28 Hydrocodone-Acet PHA 09/09/25 In Process 10/325mg Tab ([place] 15:45 Date of Service: Sep 10, 2025 Billing Provider: JANICE MUNOZ MD Common Visit Codes: [id number] INP/OBS CARE(HIGH) JANICE MUNOZ MD Sep 10, 2025 09:45
--- NOTE | 2025-09-10 09:50 | DVHDS2 ---
Discharge Summary Date of Admission Sep 09, 2025 at 00:41 Date of Discharge: Sep 10, 2025 Admitting Diagnosis Shortness of breath and chest pain Wounds: None Labs/Diagnostic Data: Laboratory Results Test 09/10/25 06:25 09/10/25 05:09 09/09/25 11:15 09/08/25 22:20 POC Glucose 146 mg/dl (70-106) Sodium Level 141 mmol/L (136-145) Potassium Level 4.5 mmol/L (3.5-5.1) Chloride Level 94 mmol/L (98-107) Carbon Dioxide Level 26 mmol/L (20-31) Anion Gap 21 (5-15) Blood Urea Nitrogen 45 mg/dL (9-23) Creatinine 11.23 mg/dL (0.700-1.30) Glomerular Filtration Rate Calc 5 mL/min (>90) BUN/Creatinine Ratio 4.0 (10.0-20.0) Serum Glucose 124 mg/dL (74-106) Calcium Level 7.6 mg/dL (8.7-10.4) Prothrombin Time 11.0 sec (9.3-11.8) Prothrombin Time INR 1.04 (0.9-1.15) Activated Partial Thromboplast Time 31.9 SEC (24.5-34.5) Hemoglobin A1c 11.0 % A1C (<5.7) Lactic Acid Level 1.4 mmol/L (0.4-2.0) Magnesium Level 2.1 mg/dL (1.6-2.6) Total Bilirubin 0.2 mg/dL (0.2-1.0) Aspartate Amino Transferase (AST) 16 U/L (13-40) Alanine Aminotransferase (ALT) 22 U/L (7-40) Alkaline Phosphatase 115 U/L (46-116) C-Reactive Protein High Sensitivity 2.11 mg/dL (<1.0) B-Type Natriuretic Peptide 88.08 pg/mL (0-100) Total Protein 8.7 g/dL (5.7-8.2) Albumin 4.9 g/dL (3.2-4.8) Thyroid Stimulating Hormone (TSH) 2.59 uIU/mL (0.55-4.78) Troponin I High Sensitivity 14 ng/L (</=54) Test 09/08/25 19:21 White Blood Count 10.2 10^3/uL (4.4-10.8) Red Blood Count 3.34 10^6/uL (4.5-5.90) Hemoglobin 10.3 g/dL (13.5-17.5) Hematocrit 30.2 % (41.0-53.0) Mean Corpuscular Volume 90.6 fL (80.0-100.0) Mean Corpuscular Hemoglobin 31.0 pg (28.0-32.0) Mean Corpuscular Hemoglobin Concent 34.2 g/dL (32.0-36.0) Red Cell Distribution Width 13.8 % (11.8-14.3) Platelet Count 217 10^3/uL (140-450) Mean Platelet Volume 8.7 fL (6.9-10.8) Neutrophils (%) (Auto) 71.1 % (37.0-80.0) Lymphocytes (%) (Auto) 19.1 % (10.0-50.0) Monocytes (%) (Auto) 6.9 % (0.0-12.0) Eosinophils (%) (Auto) 1.6 % (0.0-7.0) Basophils (%) (Auto) 1.3 % (0.0-2.0) Neutrophils # (Auto) 7.3 10 ^3/uL (1.6-8.6) Lymphocytes # (Auto) 2.0 10 ^3/uL (0.4-5.4) Monocytes # (Auto) 0.7 10 ^3/uL (0-1.3) Eosinophils # (Auto) 0.2 10 ^3/uL (0-0.8) Basophils # (Auto) 0.1 10 ^3/uL (0-0.2) Nucleated Red Blood Cells 0.1 % Other Laboratory Tests 09/10/25 05:09 09/08/25 19:21 Brief Hx & Hospital Course: 59-year-old male with a history of hypertension diabetes ESRD on hemodialysis noncompliance frequent visits to different hospitals in the local area came in complaining of shortness of breaths and chest pain troponin negative x3. Seen by Cardiology Dr. Ye advised to continue the home medications patient received hemodialysis by Nephrology Dr. Frandy Ye. Dr. Frandy Ye spoke to me and advised the patient can be discharged after hemodialysis today. The patient feels better and wants to go home. Discharged home he will continue all his home medications and follow up with the Dr. Kellie Ye and Dr. Frandy Ye for hemodialysis. Consults/Reason for consult Cardiology Dr. Kellie Ye Nephrology Dr. Frandy Ye Operations or Procedures Hemodialysis Condition at Discharge: Fair Final Diagnosis/Problems List Chest pain coronary artery disease ruled out, consult for Dr. Kellie Ye appreciated End-stage renal disease, dialysis dependent nephrology consult by Dr. Frandy Ye appreciated, patient getting hemodialysis today, Dr. Frandy Ye spoke to me and advised the patient can be discharged today. He also told that the patient is noncompliant and keep going to different hospitals in the area Hypertension Diabetes mellitus Moderate malnutrition Discharge Disposition: Home Discharge Instruct/Medications Diet: Renal Activity: No Restrictions, As Tolerated Follow Up/Referral: Resume all previous home medications Follow up with the primary Dr in one week Follow up with the Nephrology Dr. Frandy Ye for regular dialysis Follow up with the Cardiology Dr. Kellie Ye Scheduled Amlodipine Besylate (Amlodipine Besylate), 20 MG PO DAILY, (Reported) Atorvastatin Calcium (Atorvastatin Calcium), 1 TAB PO DAILY, (Reported) B-Complex W/ C & Folic Acid (Dana-Sonny), 1 MG OR DAILY, (Reported) Clonidine Hydrochloride (Clonidine Hcl), 1 TAB PO BID Ferric Citrate (Auryxia), 210 MG PO BID, (Reported) Insulin Glargine (Lantus), 10 UNIT SC DAILY, (Reported) Methocarbamol (Methocarbamol), 500 MG PO BID, (Reported) Metoprolol Tartrate (Metoprolol Tartrate), 50 MG PO BID, (Reported) Midodrine Hcl (Midodrine Hcl), 5 MG PO BID, (Reported) Nifedipine (Nifedipine Er), 1 TAB PO DAILY@BREAKFAST, (Reported) Pantoprazole Sodium (Pantoprazole Sodium), 40 MG PO DAILY, (Reported) Pregabalin (Lyrica), 1 CAP PO BID, (Reported) Vadadustat (Vafseo), 150 MG PO DAILY, (Reported) Scheduled PRN Metoclopramide Hcl (Metoclopramide Hcl), 10 MG PO Q6HPRN PRN for nausea and vomiting, (Reported) Miscellaneous Medications Insulin Lispro (Humalog Kwikpen), 100 UNIT SC, (Reported) 39 (Time taken for discharge summary 39 minutes) Discharge Statement: "Patient was advised to return to the ER or call 911 if any headaches, dizziness, shortness of breath, chest pain, abdominal pain, bleeding, fevers, or worsening of medical condition. Patient was counseled about treatment plan, medications, possible side effects, patientverbalized understanding. All questions were answered to the best of my ability. This discharge took greater then 30 minutes in planning, reviewing documentation, counseling the patient, and discussing with other team members." ASSESSMENT ASSESSMENT Assessment Chest pain coronary artery disease ruled out, consult for Dr. Kellie Ye appreciated End-stage renal disease, dialysis dependent nephrology consult by Dr. Frandy Ye appreciated, patient getting hemodialysis today, Dr. Frandy Ye spoke to me and advised the patient can be discharged today. He also told that the patient is noncompliant and keep going to different hospitals in the area Hypertension Diabetes mellitus Moderate malnutrition Date of Service: Sep 10, 2025 Billing Provider: JANICE MUNOZ MD Common Visit Codes: [id number] DISCH DAY >30min JANICE MUNOZ MD Sep 10, 2025 09:50
--- NOTE | 2025-09-10 19:02 | DVHPN2 ---
Progress Note - Dictate Date Seen: Sep 10, 2025 Medical Necessity Reason Pt with a Central, PICC or Fol: No Subjective Patient was seen and evaluated in follow up. Patient is on 2 LPM NC. BUN 45, GEOLOGICAL AIDE 11.23. Echocardiogram is pending. Telemetry reviewed. vital signs Vital Sign Date Time Temp Pulse Resp B/P (MAP) Pulse Ox O2 Delivery O2 Flow Rate FiO2 09/10/25 14:22 86 140/74 09/10/25 13:00 97.6 17 95 97.6 09/10/25 10:00 Nasal Cannula* 2 28 Total Intake and Output 09/09/25 09/09/25 09/10/25 15:00 23:00 07:00 Intake Total 220 ml Output Total 0 ml Balance 0 ml 220 ml objective GENERAL: Alert and oriented x 3. No acute distress. EYES: PERRL, EOMI. Anicteric. HENT: Moist mucous membranes. LUNGS: Clear to auscultation bilaterally. CARDIOVASCULAR: Regular rate and rhythm. ABDOMEN: Soft, nontender and nondistended. EXTREMITIES: No edema. NEUROLOGIC: No focal neurological deficits. SKIN: Warm, dry. laboratory and microbiology Laboratory Tests 09/10/25 05:09 09/08/25 19:21 Test 09/10/25 05:09 Range/Units Serum Glucose 124 H 74-106 mg/dL Problem List Chest pain. End-stage renal disease. Hypertension. Diabetes mellitus. Moderate malnutrition. Assessment/Plan Continued all current supportive medical care. Echocardiogram. Morphine and [place] for pain management. Amiodarone. Aspirin, Lipitor, Metoprolol. Nifedipine. Nitro SL. Additional plan as per the hospital course. Plan discussed with: Patient DEZ TORREZ MD Sep 10, 2025 19:02
--- NOTE | 2025-09-10 20:49 | DVHPN2 ---
Progress Note - Dictate Date Seen: Sep 10, 2025 Has the PT tested + for MRSA If YES, has PT been informed?: No Medical Necessity Reason Pt with a Central, PICC or Fol: No Subjective Patient was seen and evaluated in follow up earlier today. No acute events overnight. Patient reports feeling better and wants to go home. Dialysis scheduled. vital signs Vital Sign Date Time Temp Pulse Resp B/P (MAP) Pulse Ox O2 Delivery O2 Flow Rate FiO2 09/10/25 14:22 86 140/74 09/10/25 13:00 97.6 17 95 97.6 09/10/25 10:00 Nasal Cannula* 2 28 Total Intake and Output 09/09/25 09/09/25 09/10/25 15:00 23:00 07:00 Intake Total 220 ml Output Total 0 ml Balance 0 ml 220 ml objective Vitals and nursing notes reviewed. Gen: In no acute distress. HEENT: Normocephalic atraumatic, mucous membranes moist and pink. Neck: Cervical and supraclavicular nodes normal without enlargement, trachea is midline, thyroid gland is normal without masses. Pulmonary: Clear to auscultation and percussion bilaterally. Cardiac: Regular rate and rhythm. No murmur Abdomen: Soft, nontender, nondistended, bowel sounds present all 4 quadrants, no guarding, no rigidity, no organomegaly. Extremities: No cyanosis, clubbing, no edema Neuro: Cranial nerves II through XII grossly intact, normal affect and speech, no focal motor deficits Skin: Warm, dry, normal color and texture, no rash. laboratory and microbiology Laboratory Tests 09/10/25 05:09 09/08/25 19:21 Test 09/10/25 05:09 Range/Units Serum Glucose 124 H 74-106 mg/dL Problem List Chest pain rule out ACS End-stage renal disease, dialysis dependent Hypertension Diabetes mellitus Assessment/Plan Agree with current supportive medical care. Cardiology consulted. HD- 09/10. Resume outpatient dialysis with [facility]. Cleared for discharge from Nephrology standpoint. Plan discussed with: Patient, Other (RN) ESTHER TORREZ DO Sep 10, 2025 20:49
--- NOTE | 2025-09-10 20:49 | DVHINCON2 ---
Date of service: Sep 09, [address] Wilson Reason for Consultation ESRD and dialysis management History of Present Illness Akash Liu is a 59-year-old male with a Past Medical History pertinent for ESRD on hemodialysis and Hypertension who presented to the hospital with comp laint of shortness of breath which started approximately 30 minutes prior to completing his dialysis session today. Pain also endorses associated cough and feeling lightheaded. Also complains of lower back pain. During ED course, EKG showed A Flutter at 89. Chest x-ray reported suspected left basilar opacity. Troponin level was wnl x 3. Patient is under my care outpatient for Nephrology and dialysis standpoint. I was asked to consult. Allergies: Coded Allergies: NO KNOWN ALLERGIES (Unverified , 09/08/25) Home Meds Active Scripts Clonidine Hydrochloride (Clonidine Hcl) 0.2 Mg Tab, 1 TAB PO BID, #20 TAB 0 Refills Prov:OLGA GREEN PAC 10/30/24 Reported Medications Vadadustat (Vafseo) 150 Mg Tab, 150 MG PO DAILY, #2 TAB 09/10/25 Insulin Lispro (Humalog Kwikpen) 100 Unit/Ml Inj, 100 UNIT SC, INJ 09/09/25 Insulin Glargine (Lantus) 100 Unit/Ml Inj, 10 UNIT SC DAILY, INJ 09/09/25 Metoprolol Tartrate (Metoprolol Tartrate) 50 Mg Tab, 50 MG PO BID for 30 Days, MG 09/09/25 Amlodipine Besylate (Amlodipine Besylate) 5 Mg Tab, 20 MG PO DAILY for 30 Days, MG 09/09/25 Metoclopramide Hcl (Metoclopramide Hcl) 10 Mg Tab, 10 MG PO Q6HPRN PRN for nausea and vomiting for 30 Days, MG 09/09/25 B-Complex W/ C & Folic Acid (Dana-Sonny) Tab, 1 MG OR DAILY, TAB 09/09/25 Pantoprazole Sodium (PANTOPRAZOLE SODIUM) 40 Mg Inj, 40 MG PO DAILY, INJ 09/09/25 Nifedipine (Nifedipine Er) 90 Mg Tab, 1 TAB PO DAILY@BREAKFAST, #30 TAB 5 Refills 09/09/25 Atorvastatin Calcium (ATORVASTATIN CALCIUM) 80 Mg Tab, 1 TAB PO DAILY, #30 TAB 5 Refills 09/09/25 Midodrine Hcl (Midodrine Hcl) 5 Mg Tab, 5 MG PO BID, TAB 09/09/25 Pregabalin (Lyrica) 50 Mg Cap, 1 CAP PO BID, #90 CAP 09/09/25 Methocarbamol (Methocarbamol) 500 Mg Tab, 500 MG PO BID, TAB 09/09/25 Ferric Citrate (Auryxia) 210 Mg Tab, 210 MG PO BID, TAB 09/09/25 Current Medications Current Medications Medications (Trade) Dose Ordered Sig/Kike Route PRN Reason Start Time Stop Time Status Last Admin Atorvastatin Calcium (Lipitor) 80 mg HS PO 09/09/25 22:00 09/10/25 15:24 DC 09/09/25 23:08 Family History: Diabetes mellitus FATHER FH: breast cancer MOTHER Hypertension MOTHER Review of Systems General: No fever, no chills, or fatigue HEENT: No sore throat, no earache, no congestion, no neck pain. Cardiac: No chest pain. No palpitations. Lungs: Positive for Shortness of breath and cough. GI: No nausea, no vomiting, no diarrhea, no constipation, no abdominal pain Musculoskeletal: Positive for back pain. No joint swelling, no extremity edema. Skin: No rash, no itching. Neuro: No headache, no dizziness, no weakness And as stated in HPI. Otherwise negative. H&P Exam Vital Signs/I&O Vital Sign Date Time Temp Pulse Resp B/P (MAP) Pulse Ox O2 Delivery O2 Flow Rate FiO2 09/10/25 14:22 86 140/74 09/10/25 13:00 97.6 17 95 97.6 09/10/25 10:00 Nasal Cannula* 2 28 Intake and Output 09/09/25 09/10/25 19:00 07:00 Intake Total 220 ml Output Total 0 ml Balance 0 ml 220 ml Intake Oral 220 ml Output Urine Total 0 ml Physical Exam Vitals and nursing notes reviewed. Gen: In no acute distress. HEENT: Normocephalic atraumatic, mucous membranes moist and pink. Neck: Cervical and supraclavicular nodes normal without enlargement, trachea is midline, thyroid gland is normal without masses. Pulmonary: Clear to auscultation and percussion bilaterally. Cardiac: Regular rate and rhythm. No murmur Abdomen: Soft, nontender, nondistended, bowel sounds present all 4 quadrants, no guarding, no rigidity, no organomegaly. Extremities: No cyanosis, clubbing, no edema Neuro: Cranial nerves II through XII grossly intact, normal affect and speech, no focal motor deficits Skin: Warm, dry, normal color and texture, no rash. Labs/Diagnostic Data Labs/Diagnostic Data Laboratory Tests Test 09/10/25 11:59 09/10/25 06:25 09/10/25 05:09 09/09/25 23:15 Range/Units POC Glucose 105 146 H 166 H 70-106 mg/dl Sodium Level 141 136-145 mmol/L Potassium Level 4.5 3.5-5.1 mmol/L Chloride Level 94 L 98-107 mmol/L Carbon Dioxide Level 26 20-31 mmol/L Anion Gap 21 H 5-15 Blood Urea Nitrogen 45 H 9-23 mg/dL Creatinine 11.23 *H 0.700-1.30 mg/dL Glomerular Filtration Rate Calc 5 >90 mL/min BUN/Creatinine Ratio 4.0 L 10.0-20.0 Serum Glucose 124 H 74-106 mg/dL Calcium Level 7.6 L 8.7-10.4 mg/dL Test 09/09/25 21:20 09/09/25 16:44 09/09/25 11:56 09/09/25 11:15 Range/Units POC Glucose 188 H 129 H 130 H 70-106 mg/dl Prothrombin Time 11.0 9.3-11.8 sec Prothrombin Time INR 1.04 0.9-1.15 Activated Partial Thromboplast Time 31.9 24.5-34.5 SEC Sodium Level 140 136-145 mmol/L Potassium Level 4.4 3.5-5.1 mmol/L Chloride Level 94 L 98-107 mmol/L Carbon Dioxide Level 29 20-31 mmol/L Anion Gap 17 H 5-15 Blood Urea Nitrogen 38 H 9-23 mg/dL Creatinine 10.36 #*H 0.700-1.30 mg/dL Glomerular Filtration Rate Calc 5 >90 mL/min BUN/Creatinine Ratio 3.7 L 10.0-20.0 Serum Glucose 128 H 74-106 mg/dL Hemoglobin A1c 11.0 H <5.7 % A1C Lactic Acid Level 1.4 0.4-2.0 mmol/L Calcium Level 7.8 L 8.7-10.4 mg/dL Magnesium Level 2.1 1.6-2.6 mg/dL Total Bilirubin 0.2 0.2-1.0 mg/dL Aspartate Amino Transferase (AST) 16 13-40 U/L Alanine Aminotransferase (ALT) 22 7-40 U/L Alkaline Phosphatase 115 46-116 U/L C-Reactive Protein High Sensitivity 2.11 H <1.0 mg/dL B-Type Natriuretic Peptide 88.08 0-100 pg/mL Total Protein 8.7 H 5.7-8.2 g/dL Albumin 4.9 H 3.2-4.8 g/dL Thyroid Stimulating Hormone (TSH) 2.59 0.55-4.78 uIU/mL Test 09/08/25 22:20 09/08/25 20:32 09/08/25 19:21 Range/Units Troponin I High Sensitivity 14 14 14 </=54 ng/L White Blood Count 10.2 4.4-10.8 10^3/uL Red Blood Count 3.34 L 4.5-5.90 10^6/uL Hemoglobin 10.3 L 13.5-17.5 g/dL Hematocrit 30.2 L 41.0-53.0 % Mean Corpuscular Volume 90.6 80.0-100.0 fL Mean Corpuscular Hemoglobin 31.0 28.0-32.0 pg Mean Corpuscular Hemoglobin Concent 34.2 32.0-36.0 g/dL Red Cell Distribution Width 13.8 11.8-14.3 % Platelet Count 217 140-450 10^3/uL Mean Platelet Volume 8.7 6.9-10.8 fL Neutrophils (%) (Auto) 71.1 37.0-80.0 % Lymphocytes (%) (Auto) 19.1 10.0-50.0 % Monocytes (%) (Auto) 6.9 0.0-12.0 % Eosinophils (%) (Auto) 1.6 0.0-7.0 % Basophils (%) (Auto) 1.3 0.0-2.0 % Neutrophils # (Auto) 7.3 1.6-8.6 10 ^3/uL Lymphocytes # (Auto) 2.0 0.4-5.4 10 ^3/uL Monocytes # (Auto) 0.7 0-1.3 10 ^3/uL Eosinophils # (Auto) 0.2 0-0.8 10 ^3/uL Basophils # (Auto) 0.1 0-0.2 10 ^3/uL Nucleated Red Blood Cells 0.1 % Sodium Level 138 136-145 mmol/L Potassium Level 3.7 3.5-5.1 mmol/L Chloride Level 93 L 98-107 mmol/L Carbon Dioxide Level 28 20-31 mmol/L Anion Gap 17 H 5-15 Blood Urea Nitrogen 29 H 9-23 mg/dL Creatinine 8.27 H 0.700-1.30 mg/dL Glomerular Filtration Rate Calc 7 >90 mL/min BUN/Creatinine Ratio 3.5 L 10.0-20.0 Serum Glucose 208 H 74-106 mg/dL Calcium Level 7.7 L 8.7-10.4 mg/dL Assessment Chest pain rule out ACS End-stage renal disease, dialysis dependent Hypertension Diabetes mellitus Plan/Recommendation Agreement with your ongoing assessment and plan of care. Cardiology consulted. Dialyzed today outpatient. Supplemental oxygen to keep sats >92%. MedNeb breathing treatments. Albuterol. Home medications resumed. Additional plan as per the hospital course. Plan discussed with: Patient, Other (RN) ESTHER TORREZ DO Sep 10, 2025 20:49
[2025-09-10] MEDS ORDERED: EPOETIN ALFA-EPBX 10,000 UNIT/1ML VIAL SC ONE (21:00)
--- NOTE | 2025-09-12 13:42 | DVHSR ---
APPROVED REPORT EXAM: Two-dimensional and M-mode echocardiogram with Doppler and color Doppler. Blood Pressure: 148/73 mmHg INDICATION Chest Pain RISK FACTORS Obesity: Height: 70, Weight: 265 DIMENSIONS LVDd 4.9 (3.8-5.7cm) LA (2D) (1.9-4.0cm) Aortic Root 3.6 (2.0-3.7cm) LVDs 3.7 (2.5-4.0cm) LA (MM) (1.9-4.0cm) Aortic Cusp Exc 1.9 (1.5-2.0cm) EF (%) 50.0 (55-70%) Rt. Atrium (1.9-4.0cm) Asc. Aorta cm IVSd 1.1 (0.7-1.1cm) RV (D) (1.8-2.4cm) PWd 1.3 (0.7-1.1cm) Mitral Valve Mitral Mitral Stenosis E wave 0.53m/s MV Mean GR. mmHg A wave 0.77m/s MV Peak GR. mmHg E/A ratio 0.7 2D MVA cm2 DECEL Time 233ms PRESS 1/2 Time ms Aortic Valve Aortic Valve Aortic Stenosis V1 0.81m/s AO Mean GR. 3mmHg V2 1.09m/s AO Peak GR. 5mmHg LVOT Diameter 2.3 (1.8-2.4cm) Doppler LORE 3.09cm2 Pulmonic Valve V2 0.95m/s Other Information Quality : Technically Limited Rhythm : Technically limited study due to pt sitting up unable to lay down and sob. patient position.body habitus. Conclusion MODERATE DEGREE LVH AND MODERAE DEGREE LV DIASTOLIC DYSFUNCTION GLOBAL LV HYPOKINESIS LV EF IS IN RANGE OF 45% AND IS BORDERLINE REDUCED MODERATELY DILATED RV NORMAL VALVES NO EFFUSION
--- NOTE | 2025-09-15 07:01 | ECG ---
[facility] Test Date: 2025-09-08 Test Time: 18:59:32 Pat Name: TAN DEL RIO Department: [facility] ED Patient ID: [id number] Room: 0220T A Gender: M Wellness Nurse Rn: MARTELL : 1965 Requested By: ANNA ROWE Order Number: [id number] Reading MD: Jones Mcleod Measurements Intervals [place] Rate: 88 P: 43 AR: 198 QRS: 53 QRSD: 103 T: 86 QT: 404 QTc: 489 Interpretive Statements Sinus rhythm RSR' in V1 or V2, probably normal variant Borderline prolonged QT interval Electronically Signed On 09-15-2025 17:36:49 PST by Jones Mcleod Please click the below link to view image of tracing.
== END 2025-09-10 14:50 | disposition home or self-care (01) | DRG 205 ==
LOC: EDBD 18:58 → ER 18:58 → OVERFLOW 09-09 00:41 → TELE-CENTR 09-09 19:00
PROVIDERS: ADMIT Family Medicine; ATTEND Family Medicine
PROC: 5A1D70Z Performance of Urinary Filtration, Intermittent, Less than 6 Hours Per Day (ICD-10-PCS; principal; 2025-09-10)
DX: M94.0 Chondrocostal junction syndrome [Tietze] (principal); N18.6 End stage renal disease; E44.0 Moderate protein-calorie malnutrition; I12.0 Hypertensive chronic kidney disease with stage 5 chronic kidney disease or end stage renal disease; Z99.2 Dependence on renal dialysis; E11.22 Type 2 diabetes mellitus with diabetic chronic kidney disease; Z68.38 Body mass index [BMI] 38.0-38.9, adult; I48.92 Unspecified atrial flutter; Z83.3 Family history of diabetes mellitus; Z82.49 Family history of ischemic heart disease and other diseases of the circulatory system; Z80.3 Family history of malignant neoplasm of breast; Z79.4 Long term (current) use of insulin; Z79.899 Other long term (current) drug therapy; Z91.199 Patient's noncompliance with other medical treatment and regimen due to unspecified reason
CPT/HCPCS: 36415; 70450; 71045; 80048; 80053; 82962; 83036; 83605; 83735; 83880; 84443; 84484; 85025; 85610; 85730; 86141; 90935; 93005; 93306; 94640; G0378; J1815; J2003; J2405